=== PATIENT | male | born 1985 | race Caucasian/White ===

== ENCOUNTER → 2022-02-28 | Outpatient (CLI) | payer OTHER ==
--- NOTE | 2022-02-28 11:28 | XR ---
EXAMINATION TYPE: XR hand complete 3 views RT DATE OF EXAM: 02/28/2022 COMPARISON: NONE HISTORY: 36-year-old male S60.221A Contusion of right hand, S61.401A Open wound FINDINGS: There appears to be some soft tissue swelling involving the thenar eminence of the hand on the latera l view. No underlying acute fracture, subluxation, dislocation. IMPRESSION: Some soft tissue swelling suggested along the thenar eminence. No acute osseous abnormality seen.
== END | disposition home or self-care (01) ==
LOC: RADXRMAIN 10:46
PROVIDERS: ATTEND Emergency Medicine
DX: S60.221A Contusion of right hand, initial encounter (principal); S61.401A Unspecified open wound of right hand, initial encounter